=== PATIENT | female | born 1995 | race Caucasian/White ===

== ENCOUNTER 2023-04-08 03:15 | Inpatient (IN) | payer BC, MEDICAID ==
[2023-05-06] MEDS ORDERED: Indocyanine Green 25 MG SDV ONE (08:00)
[2023-05-06] MEDS ORDERED: Scopolamine 1.5 MG Transdermal Patch TRDERM ONE (08:30)
[2023-05-06] MEDS ORDERED: Acetaminophen 500 MG Tab PO ONE (08:30)
[2023-05-06 08:47] LABS: HEMATOCRIT 43.2 % (34.3-46.0); MEAN CORPUSCULAR HEMOGLOBIN 31.6 pg (31.6-35.5); MEAN CORPUSCULAR HGB CONC 34.7 g/dL (31.6-35.5); MEAN CORPUSCULAR VOLUME 90.9 fL (81.4-99.0); RED BLOOD CELL COUNT 4.75 M/uL (3.77-5.24)
[2023-05-06] MEDS ORDERED: Dexamethasone 4 MG/ML SDV ONE (08:52)
[2023-05-06] MEDS ORDERED: Ondansetron 4 MG/2 ML SDV ONE (08:52)
[2023-05-06] MEDS ORDERED: Rocuronium 50 MG/5 ML Vial ONE ×2 (08:52→13:34)
[2023-05-06] MEDS ORDERED: fentaNYL 250 MCG/5 ML SDV ONE ×3 (08:52→11:47)
[2023-05-06] MEDS ORDERED: Glycopyrrolate 0.2 MG/ML 5 ML MDV ONE (08:52)
[2023-05-06] MEDS ORDERED: Propofol 200 MG/20 ML SDV ONE ×2 (08:52→14:34)
[2023-05-06] MEDS ORDERED: Succinylcholine 200 MG/10 ML MDV ONE (08:52)
[2023-05-06] MEDS ORDERED: Neostigmine Methylsulfate 1 MG/ML 5 ML Syringe ONE (08:52)
[2023-05-06 09:03] LABS: BLOOD UREA NITROGEN,BUN 11 mg/dL (7-18); CALCIUM 8.8 mg/dL (8.5-10.1); CARBON DIOXIDE,CO2 25 mmol/L (21-32); CHLORIDE,CL 101 mmol/L (100-108); CREATININE 0.8 mg/dL (0.6-1.0); ESTIMATED GFR 103 mL/min (>60); GLUCOSE RANDOM 64 mg/dL (74-106); POTASSIUM,K 3.4 mmol/L (3.6-5.2); SODIUM,NA 136 mmol/L (140-148)
[2023-05-06 09:04] LABS: ANION GAP 13.4 mmol/L (5.0-14.0)
[2023-05-06] MEDS ORDERED: metroNIDAZOLE/Normal Saline 500 MG in Premix Bag 1 BAG IV ONE (09:30)
[2023-05-06] MEDS ORDERED: cefTRIAXone 2 GM in Sodium Chloride 0.9% 50 ML IV ONE (09:30)
[2023-05-06] MEDS ORDERED: Ketamine 500 MG/5 ML MDV IV SCH (09:30)
[2023-05-06] MEDS: Sodium Chloride 0.9% 1,000 ML IV SCH ×2 (09:47→23:17)
[2023-05-06] MEDS ORDERED: Bupivacaine 0.5%/EPINEPHrine 1:200,000 50 ML MDV ONE (10:23)
[2023-05-06] MEDS ORDERED: Labetalol 20 MG/4 ML Syringe ONE (11:47)
[2023-05-06] MEDS ORDERED: Lactated Ringers 1,000 ML ONE (12:29)
[2023-05-06] MEDS ORDERED: fentaNYL 100 MCG/2 ML SDV ONE (14:17)
[2023-05-06] MEDS ORDERED: Pramipexole 0.5 MG Tab PO PRN (14:44)
[2023-05-06] MEDS ORDERED: Non-Formulary Medication 1 Each (Albuterol Sulfate [Proair Respiclick] 90 MCG Aer.Pow.Ba) IH PRN (14:44)
[2023-05-06] MEDS ORDERED: Gabapentin 300 MG Cap PO PRN (14:56)
[2023-05-06] MEDS ORDERED: Albuterol 6.7 GM Inhaler INH PRN (14:59)
[2023-05-06] MEDS ORDERED: Ondansetron 4 MG/2 ML SDV IVPUSH PRN (15:00)
[2023-05-06] MEDS: Acetaminophen 1,000 MG in Premix Bag 1 BAG IV SCH ×2 (15:36→23:10)
[2023-05-06] MEDS ORDERED: HYDROmorphone 0.5 MG/0.5 ML Syringe IVPUSH ONE (17:57)
[2023-05-06] MEDS: oxyCODONE 5 MG Tab PO PRN (21:39)
[2023-05-07] MEDS: oxyCODONE 5 MG Tab PO PRN ×5 (02:14→23:53)
[2023-05-07 04:17] LABS: HEMATOCRIT 42.1 % (34.3-46.0); MEAN CORPUSCULAR HEMOGLOBIN 31.8 pg (31.6-35.5); MEAN CORPUSCULAR HGB CONC 35.6 g/dL (31.6-35.5); MEAN CORPUSCULAR VOLUME 89.2 fL (81.4-99.0); RED BLOOD CELL COUNT 4.72 M/uL (3.77-5.24)
[2023-05-07 05:05] LABS: A/G RATIO 0.8 (1.2-2.2); ALBUMIN 3.2 g/dL (3.4-5.0); ALKALINE PHOSPHATASE 67 U/L (46-116); ASPARTATE AMNIOTRANSFERASE,AST 728 U/L (15-37); BILIRUBIN TOTAL 0.8 mg/dL (0.2-1.0); BLOOD UREA NITROGEN,BUN 8 mg/dL (7-18); CALCIUM 8.7 mg/dL (8.5-10.1); CARBON DIOXIDE,CO2 24 mmol/L (21-32); CHLORIDE,CL 104 mmol/L (100-108); CREATININE 0.7 mg/dL (0.6-1.0); EST CRCL DRUG DOSING (CG) 107.49 mL/min; ESTIMATED GFR 121 mL/min (>60); GLUCOSE RANDOM 121 mg/dL (74-106); POTASSIUM,K 3.9 mmol/L (3.6-5.2); SODIUM,NA 137 mmol/L (140-148)
[2023-05-07 05:09] LABS: ALANINE AMINOTRANSFERASE,ALT 1185 U/L (12-78); ANION GAP 12.9 mmol/L (5.0-14.0)
[2023-05-07] MEDS: Acetaminophen 1,000 MG in Premix Bag 1 BAG IV SCH ×2 (08:15→15:25)
[2023-05-07] MEDS: Pantoprazole 40 MG Vial IVPUSH SCH (08:16)
[2023-05-07] MEDS: Enoxaparin 40 MG/0.4 ML Syringe SUBCUT SCH ×2 (10:35→21:10)
[2023-05-07] MEDS: Sodium Chloride 0.9% 1,000 ML IV SCH ×2 (15:27→20:33)
[2023-05-07] MEDS ORDERED: DULoxetine 30 MG Cap PO SCH (21:00)
[2023-05-07] MEDS: Acetaminophen Soln 160 MG/5 ML UD Cup PO SCH (23:54)
[2023-05-08 04:25] LABS: HEMOGLOBIN 14.1 g/dL (11.2-15.5); MEAN CORPUSCULAR HEMOGLOBIN 31.6 pg (31.6-35.5); MEAN CORPUSCULAR HGB CONC 34.4 g/dL (31.6-35.5); MEAN CORPUSCULAR VOLUME 91.9 fL (81.4-99.0); RED BLOOD CELL COUNT 4.46 M/uL (3.77-5.24); WHITE BLOOD CELL COUNT,WBC 12.1 K/uL (3.2-11.0)
[2023-05-08 04:57] LABS: A/G RATIO 0.9 (1.2-2.2); ALBUMIN 3.1 g/dL (3.4-5.0); ALKALINE PHOSPHATASE 60 U/L (46-116); ASPARTATE AMNIOTRANSFERASE,AST 612 U/L (15-37); BILIRUBIN TOTAL 0.8 mg/dL (0.2-1.0); BLOOD UREA NITROGEN,BUN 9 mg/dL (7-18); CALCIUM 8.4 mg/dL (8.5-10.1); CARBON DIOXIDE,CO2 24 mmol/L (21-32); CHLORIDE,CL 105 mmol/L (100-108); CREATININE 0.7 mg/dL (0.6-1.0); EST CRCL DRUG DOSING (CG) 107.49 mL/min; ESTIMATED GFR 121 mL/min (>60); GLUCOSE RANDOM 89 mg/dL (74-106); POTASSIUM,K 3.8 mmol/L (3.6-5.2); PROTEIN TOTAL,TP 6.7 g/dL (6.4-8.2); SODIUM,NA 137 mmol/L (140-148)
[2023-05-08 05:03] LABS: ALANINE AMINOTRANSFERASE,ALT 1717 U/L (12-78); ANION GAP 11.8 mmol/L (5.0-14.0)
[2023-05-08] MEDS: Acetaminophen Soln 160 MG/5 ML UD Cup PO SCH (05:41)
[2023-05-08] MEDS: Sodium Chloride 0.9% 1,000 ML IV SCH (05:46)
[2023-05-08] MEDS: Pantoprazole 40 MG Vial IVPUSH SCH (09:05)
[2023-05-08] MEDS: Enoxaparin 40 MG/0.4 ML Syringe SUBCUT SCH (09:05)
== END 2023-05-08 12:22 | disposition home or self-care (01) | DRG 403 ==
LOC: JP.SDSSCHI 05-06 08:05 → JP.MS 05-06 14:49
PROVIDERS: ADMIT Student in an Organized Health Care Education/Training Program; ATTEND Student in an Organized Health Care Education/Training Program
PROC: 0D164ZA Bypass Stomach to Jejunum, Percutaneous Endoscopic Approach (ICD-10-PCS; principal; 2023-05-06)
DX: E66.01 Morbid (severe) obesity due to excess calories (principal); G47.00 Insomnia, unspecified; L21.9 Seborrheic dermatitis, unspecified; Z68.42 Body mass index [BMI] 45.0-49.9, adult; Z79.899 Other long term (current) drug therapy; Z88.0 Allergy status to penicillin; Z88.1 Allergy status to other antibiotic agents
CPT/HCPCS: 36415; 80048; 80053; 81025; 85027; 86850; 86900; 86901; A9270-GY; C9113; J0131; J0330; J0696; J1100; J1170; J1650; J2405; J2704; J2710; J3010; J3490; J7030; J7120

== ENCOUNTER 2023-06-24 08:41 | Day surgery (SDC) | payer BC, MEDICAID ==
[2023-06-24] MEDS ORDERED: Cyanocobalamin (Vitamin B12) 1,000 MCG/ML SDV IM ONE (09:15)
[2023-06-24] MEDS ORDERED: Lactated Ringers 1,000 ML IV ONE (09:15)
[2023-06-24] MEDS ORDERED: Glycopyrrolate 0.2 MG/ML 2 ML SDV IVPUSH ONE (09:45)
[2023-06-24] MEDS ORDERED: MVI, Adult with Vitamin K 10 ML, Thiamine 200 MG, Zinc/Copper/Manganese/Selenium 1 ML i... IV ONE ×4 (10:15)
[2023-06-24] MEDS ORDERED: Midazolam 1 MG/ML 2 ML SDV ONE (10:40)
[2023-06-24] MEDS ORDERED: fentaNYL 50 MCG/ML SDV ONE (10:40)
[2023-06-24] MEDS ORDERED: Propofol 200 MG/20 ML SDV ONE ×2 (10:40→11:31)
== END 2023-06-24 14:45 | disposition home or self-care (01) ==
LOC: JP.SDS 08:41
PROVIDERS: ATTEND Student in an Organized Health Care Education/Training Program
DX: R13.10 Dysphagia, unspecified (principal); F32.A Depression, unspecified; F90.9 Attention-deficit hyperactivity disorder, unspecified type; F43.10 Post-traumatic stress disorder, unspecified; E28.2 Polycystic ovarian syndrome; Z98.84 Bariatric surgery status; Z88.0 Allergy status to penicillin
CPT/HCPCS: 43235; J2250; J2704; J3010; J3411; J3420; J3490; J7120